=== PATIENT | female | born 1940 | race Caucasian/White ===

== ENCOUNTER 2016-07-29 15:51 | Emergency (ER) | payer MEDICARE, OTHER ==
[2016-07-29 16:16] VITALS: BMI 32.5
[2016-07-29 16:31] VITALS: TEMP 98.6
[2016-07-29] MEDS ORDERED: Sodium Chloride 0.9% 1,000 ML IV SCH (16:45)
[2016-07-29 17:07] LABS: ADD MANUAL DIFF? NO
[2016-07-29 17:10] LABS: BASO # 0.02 K/mm3 (0.0-2.0); BASO % 0.2 % (0.0-3.0); EOS # 0.2 (0.0-0.7); EOS % 1.7 % (1.5-5.0); GRAN # 8.17 (1.4-6.5); GRAN % 73.4 % (50.0-68.0); HEMATOCRIT 39.6 % (36.0-48.0); LYMPH # 2.2 (1.2-3.4); LYMPH % 19.5 % (22.0-35.0); MEAN CELL VOLUME 89.6 fL (80.0-105.0); MEAN CORPUSCULAR HGB CONC 32.3 g/dl (31.0-37.0); MEAN PLATELET VOLUME 10.1 fl (7.0-11.0); MONO # 0.6 (0.1-0.6); MONO % 5.2 % (1.0-6.0); PLATELET COUNT 263 10^3/uL (120.0-450.0); RED CELL DISTRIBUTION WIDTH 15.2 % (11.5-14.5); WHITE BLOOD COUNT 11.1 10^3/ul (4.5-11.0)
[2016-07-29 17:19] LABS: ALKALINE PHOSPHATASE 65 U/L (38-133); ALT/SGPT 8 U/L (7-56); AST/SGOT 31 U/L (15-39); BILIRUBIN,TOTAL 0.6 mg/dL (0.2-1.3); BLOOD UREA NITROGEN 18 mg/dL (7-21); CALCIUM 9.1 mg/dL (8.4-10.5); CARBON DIOXIDE 30 mmol/L (21-33); CHLORIDE 103 mmol/L (98-107); GFR AFRICAN-AMERICAN > 60; GLUCOSE,RANDOM 110 mg/dL (70-110); SODIUM 141 mmol/L (132-148); TOTAL PROTEIN 7.5 g/dL (5.8-8.3)
[2016-07-29 17:21] LABS: POTASSIUM 4.5 mmol/L (3.6-5.0)
[2016-07-29 17:32] LABS: TROPONIN I < 0.01 ng/mL
--- NOTE | 2016-07-29 17:54 | CT ---
PROCEDURE: CT HEAD WITHOUT CONTRAST. HISTORY: dizziness COMPARISON: Noncontrast head CT performed 01/14/13 TECHNIQUE: Axial computed tomography images were obtained through the head/brain without intravenous contrast. Radiation dose: Total exam DLP = 800.68 mGy-cm. FINDINGS: HEMORRHAGE: No intracranial hemorrhage. BRAIN: No mass effect or edema. Scattered white matter hypodensities, which are nonspecific, but often seen with chronic microvascular ischemic disease. Please note that MRI with diffusion imaging is more sensitive in the detection of acute ischemic event. VENTRICLES: No hydrocephalus. CALVARIUM: Unremarkable. PARANASAL SINUSES: Unremarkable as visualized. No significant inflammatory changes. MASTOID AIR CELLS: Under aeration of the mastoid air cells bilaterally ; correlate for clinical history of chronic mastoiditis. OTHER FINDINGS: None. IMPRESSION: Nonspecific scattered white matter changes. Under aeration of the mastoid air cells bilaterally ; correlate for clinical history of chronic mastoiditis.
--- NOTE | 2016-07-29 18:01 | ED PDOC ---
Arrival/HPI - General Chief Complaint: Dizziness/Lightheaded Time Seen by Provider: 07/29/16 16:20 Historian: Patient - History of Present Illness Narrative History of Present Illness (Text): 07/29/16 16:30 Alisa Whitney is a 76 year old female whose past medical history includes Vertigo/DizzinesS, who presents to the ED after experiencing a five minute episode of dizziness. Patient states symptoms began after riding in the back of a car. Symptoms resolved spontaneously. Patient is now asymptomatic. Patient states she has medication for vertigo but did not take it at the time of symptom onset because she did not have it with her. Patient denies ever having any fever, chills, chest pain, shortness of breath, nausea, vomiting, diarrhea, urinary symptoms, back pain, neck pain, headache, or any other complaints. PMD: Heri Rubin MD Time/Duration: 24 hours Symptom Onset: Gradual Activities at Onset: Light Context: Home Past Medical History - Provider Review Nursing Documentation Reviewed: Yes - Infectious Disease Hx of Infectious Diseases: None - Tetanus Immunization Tetanus Immunization: Unknown - Reproductive Menopause: Yes - Cardiac Hx Hypertension: Yes - Pulmonary Hx Respiratory Disorders: No - Neurological Hx Neurological Disorder: No - HEENT Hx HEENT Disorder: No - Renal Hx Renal Disorder: No - Endocrine/Metabolic Hx Diabetes Mellitus Type 2: Yes - Hematological/Oncological Hx Anemia: Yes Hx Cancer: Yes (/carcinoid cancer lung) - Integumentary Hx Dermatological Disorder: No - Musculoskeletal/Rheumatological Hx Musculoskeletal Disorders: No Hx Falls: No - Gastrointestinal Hx Gastroesophageal Reflux: Yes - Genitourinary/Gynecological Hx Genitourinary Disorders: No - Psychiatric Hx Psychophysiologic Disorder: No Hx Emotional Abuse: No Hx Physical Abuse: No Hx Substance Use: No - Surgical History Hx Cholecystectomy: Yes Other/Comment: Lung surgery for cancer. Unsure exactly what kind. - Anesthesia Hx Anesthesia Reactions: No Hx Malignant Hyperthermia: No - Suicidal Assessment Feels Threatened In Home Enviroment: No Family/Social History - Physician Review Nursing Documentation Reviewed: Yes Family/Social History: No Known Family HX Smoking Status: Former Smoker Hx Alcohol Use: No Hx Substance Use: No Allergies/Home Meds Allergies/Adverse Reactions: Allergies CT SCAN DYE Allergy (Intermediate, Uncoded 07/29/16 16:08) RASH Home Medications: Home Meds Medication Instructions Recorded Confirmed Folic Acid 1 mg PO DAILY 01/14/13 07/29/16 Meclizine HCl [Antivert] 25 mg PO TID 01/14/13 07/29/16 [id number] CD [Cardizem CD] 180 mg PO DAILY 01/14/13 07/29/16 Aspirin/Dipyridamole [Aggrenox 1 cap PO BID 07/07/16 07/29/16 25-200 mg] Ergocalciferol (Vitamin D2) 1 cap PO QWK 07/07/16 07/29/16 [Vitamin D2] Ferrous Sulfate [Feosol] 325 mg PO TID 07/07/16 07/29/16 Octreotide Depot [SandoSTATIN LAR 30 mg IM Q30D 07/07/16 07/29/16 (Depot formulation)] Luxor-0-Dyyh Ethyl Esters 1 GM 2 gm PO BID 07/07/16 07/29/16 [Lovaza] Rosuvastatin Calcium [Crestor] 20 mg PO DAILY 07/07/16 07/29/16 Review of Systems - Physician Review All systems were reviewed & negative as marked: Yes - Review of Systems Constitutional: Normal. absent: Fevers Eyes: Normal. absent: Vision Changes ENT: Normal. absent: Hearing Changes Respiratory: Normal. absent: SOB, Cough Cardiovascular: Normal. absent: Chest Pain Gastrointestinal: Normal. absent: Abdominal Pain, Diarrhea, Nausea, Vomiting Genitourinary Female: Normal. absent: Dysuria, Frequency, Hematuria Musculoskeletal: Normal. absent: Back Pain, Neck Pain Skin: Normal Neurological: Dizziness. absent: Headache Endocrine: Normal Hemo/Lymphatic: Normal Psychiatric: Normal Physical Exam Vital Signs Reviewed: Yes Vital Signs Temp Pulse Resp BP Pulse Ox 07/29/16 18:33 68 18 143/75 96 07/29/16 16:30 98.6 F 75 24 136/68 98 07/29/16 16:10 98.2 F 84 18 158/81 H 98 Temperature: Afebrile Blood Pressure: Hypertensive Pulse: Regular Respiratory Rate: Normal Appearance: Positive for: Well-Appearing, Non-Toxic, Comfortable Pain Distress: None Mental Status: Positive for: Alert and Oriented X 3 Finger Stick Blood Glucose: 116 - Systems Exam Head: Present: Atraumatic, Normocephalic Pupils: Present: PERRL Extroacular Muscles: Present: EOMI Conjunctiva: Present: Normal Mouth: Present: Moist Mucous Membranes Neck: Present: Normal Range of Motion Respiratory/Chest: Present: Clear to Auscultation, Good Air Exchange. No: Respiratory Distress, Accessory Muscle Use Cardiovascular: Present: Regular Rate and Rhythm, Normal S1, S2. No: Murmurs Abdomen: Present: Normal Bowel Sounds. No: Tenderness, Distention, Peritoneal Signs Back: Present: Normal Inspection Upper Extremity: Present: Normal Inspection. No: Cyanosis, Edema Lower Extremity: Present: Normal Inspection. No: Edema Neurological: Present: GCS=15, CN II-XII Intact, Speech Normal Skin: Present: Warm, Dry, Normal Color. No: Rashes Psychiatric: Present: Alert, Oriented x 3, Normal Insight, Normal Concentration Medical Decision Making ED Course and Treatment: 07/29/16 16:30 Impression: 76 year old female presenting for an episode dizziness that has resolved. Plan: -- Head CT -- EKG -- Labs, Troponin -- IV Fluids -- Reassess and disposition Progress Notes: 07/29/16 17:52 Procedure: CT HEAD WITHOUT CONTRAST. Dictator: Eugenie Chaves MD Impression: Nonspecific scattered white matter changes. Under aeration of the mastoid air cells bilaterally ; correlate for clinical history of chronic mastoiditis. 07/29/16 18:09 On re-evaluation, the patient feels better and is in no acute distress. I have discussed the results and plan with the patient, who expresses understanding. Patient in agreement with plan to discharged home. Patient is stable for discharge. Patient was instructed to follow up with physician/clinic in 1-2 days or return if symptoms worsen or new concerning symptoms arise. - Lab Interpretations Lab Results: 07/29/16 16:50 07/29/16 16:50 Lab Results 07/29/16 16:50: WBC 11.1 H D, RBC 4.42, Hgb 12.8, Hct 39.6, MCV 89.6, MCH 29.0, MCHC 32.3, RDW 15.2 H, Plt Count 263, MPV 10.1, Gran % 73.4 H, Lymph % (Auto) 19.5 L, [place] % (Auto) 5.2, Eos % (Auto) 1.7, Baso % (Auto) 0.2, Gran # 8.17 H, Lymph # 2.2, [place] # 0.6, Eos # 0.2, Baso # 0.02, Sodium 141, Potassium 4.5, Chloride 103, Carbon Dioxide 30, Anion Gap 13, BUN 18, Creatinine 0.8, Est GFR ( Amer) > 60, Est GFR (Non-Af Amer) > 60, Random Glucose 110, Calcium 9.1 , Total Bilirubin 0.6, AST 31, ALT 8, Alkaline Phosphatase 65, Troponin I < 0.01 , Total Protein 7.5, Albumin 3.8, Globulin 3.7, Albumin/Globulin Ratio 1.0 L I have reviewed the lab results: Yes - RAD Interpretation Narrative RAD Interpretations (Text): 07/29/16 17:52 Procedure: CT HEAD WITHOUT CONTRAST. Dictator: Eugenie Chaves MD FINDINGS: HEMORRHAGE: No intracranial hemorrhage. BRAIN: No mass effect or edema. Scattered white matter hypodensities, which are nonspecific, but often seen with chronic microvascular ischemic disease. Please note that MRI with diffusion imaging is more sensitive in the detection of acute ischemic event. VENTRICLES: No hydrocephalus. CALVARIUM: Unremarkable. PARANASAL SINUSES: Unremarkable as visualized. No significant inflammatory changes. MASTOID AIR CELLS: Under aeration of the mastoid air cells bilaterally ; correlate for clinical history of chronic mastoiditis. OTHER FINDINGS: None. Impression: Nonspecific scattered white matter changes. Under aeration of the mastoid air cells bilaterally ; correlate for clinical history of chronic mastoiditis. Radiology Orders: 07/29/16 16:39 HEAD W/O CONTRAST [CT] Stat Hydraulic Jack Mechanic: Radiologist - EKG Interpretation Interpreted by ED Physician: Yes Type: 12 lead EKG - Medication Orders Current Medication Orders: Discontinued Medications Sodium Chloride (Sodium Chloride 0.9%) 1,000 mls @ 100 mls/hr IV .Q10H SERVANDO Last Admin: 07/29/16 17:02 Dose: 100 MLS/HR eMAR Start Stop Document 07/29/16 17:02 OCS (Rec: 07/29/16 17:04 OCS [id number]) Intravenous Solution Start Date 07/29/16 Start Time 17:04 - Scribe Statement The provider has reviewed the documentation as recorded by the Scribe Brookyln Daly Provider Attestation: All medical record entries made by the Scribe were at my direction and personally dictated by me. I have reviewed the chart and agree that the record accurately reflects my personal performance of the history, physical exam, medical decision making, and the department course for this patient. I have also personally directed, reviewed, and agree with the discharge instructions and disposition. Disposition/Present on Arrival - Present on Arrival Any Indicators Present on Arrival: No History of DVT/PE: No History of Uncontrolled Diabetes: No Urinary Catheter: No History of Decub. Ulcer: No History Surgical Site Infection Following: None - Disposition Have Diagnosis and Disposition been Completed?: Yes Diagnosis: Dizziness Disposition: HOME/ ROUTINE Disposition Time: 18:00 Condition: GOOD Discharge Instructions (ExitCare): Dizziness (ED) Additional Instructions: Thank you for letting us take care of you today. Your provider was Dr. Fam. You were treated for dizziness. The emergency medical care you received today was directed at your acute symptoms. If you were prescribed any medication, please fill it and take as directed. It may take several days for your symptoms to resolve. Return to the Emergency Department if your symptoms worsen, do not improve, or if you have any other problems. Please contact your doctor or call one of the physicians/clinics you have been referred to that are listed on the Patient Visit Information form that is included in your discharge packet. Bring any paperwork you were given at discharge with you along with any medications you are taking to your follow up visit. Our treatment cannot replace ongoing medical care by a primary care provider (PCP) outside of the emergency department. Thank you for allowing the [facility] team to be part of your care today. Follow up with your doctor in 2-3 days for re-evaluation. Referrals: Heri Rubin MD [Primary Care Provider] - Follow up with primary
[2016-07-29 18:34] VITALS: BP 143/75; PULSE 68; RESP 18; O2SAT 96
--- NOTE | 2016-07-30 09:50 | CARD ---
APPROVED REPORT EKG Measurement Heart [id number] <Conclusion> Normal sinus rhythm Normal ECG No change
== END 2016-07-29 18:39 | disposition home or self-care (01) ==
LOC: ED 15:51
DX: R42 Dizziness and giddiness (principal); Z87.891 Personal history of nicotine dependence; E11.9 Type 2 diabetes mellitus without complications
CPT/HCPCS: 70450; 80053; 84484; 85025; 93005; 99285; J7040

== ENCOUNTER 2016-10-24 10:21 | Day surgery (SDC) | payer MEDICARE, OTHER ==
[2016-10-13 12:49] VITALS: BMI 33.9
[2016-10-24] MEDS ORDERED: Propofol 10 mg/ml Inj (20 ML) ONE (12:22)
[2016-10-24] MEDS ORDERED: Midazolam 2 MG/2 ML VIAL ONE (12:22)
[2016-10-24] MEDS ORDERED: Lidocaine 1% Inj (20ml) ONE (12:22)
[2016-10-24] MEDS ORDERED: Sodium Chloride 0.9% 1,000 ML IV SCH (13:00)
[2016-10-24 14:50] VITALS: BP 126/71; PULSE 69; RESP 16; TEMP 98; O2SAT 96
== END 2016-10-24 14:34 | disposition home or self-care (01) ==
LOC: ENDO 10:21
PROVIDERS: ATTEND Internal Medicine Gastroenterology
DX: D50.9 Iron deficiency anemia, unspecified (principal); K25.9 Gastric ulcer, unspecified as acute or chronic, without hemorrhage or perforation; E11.9 Type 2 diabetes mellitus without complications; E78.5 Hyperlipidemia, unspecified; I10 Essential (primary) hypertension; Z85.110 Personal history of malignant carcinoid tumor of bronchus and lung
CPT/HCPCS: 43239; 88305; 88342; J2250; J2704; J3010; J7040 ×2

== ENCOUNTER 2017-02-02 10:30 | Day surgery (SDC) | payer MEDICARE, OTHER ==
[2016-10-13 12:49] VITALS: BMI 33.9
[2017-02-02 10:53] LABS: BASO # 0.03 K/mm3 (0.0-2.0); BASO % 0.3 % (0.0-3.0); EOS # 0.4 (0.0-0.7); EOS % 4.1 % (1.5-5.0); GRAN # 8.32 (1.4-6.5); GRAN % 77.3 % (50.0-68.0); HEMATOCRIT 42.5 % (36.0-48.0); LYMPH # 1.2 (1.2-3.4); MEAN CELL VOLUME 92.6 fl (80.0-105.0); MEAN CORPUSCULAR HEMOGLOBIN 30.5 pg (25.0-35.0); MEAN CORPUSCULAR HGB CONC 32.9 g/dl (31.0-37.0); MEAN PLATELET VOLUME 9.6 fl (7.0-11.0); MONO # 0.8 (0.1-0.6); MONO % 7.3 % (1.0-6.0); RED CELL DISTRIBUTION WIDTH 13.7 % (11.5-14.5); WHITE BLOOD COUNT 10.8 10^3/ul (4.5-11.0)
[2017-02-02 11:01] LABS: ALB/GLOB RATIO 1.3 (1.1-1.8); ALKALINE PHOSPHATASE 75 U/L (38-126); ALT/SGPT 29 U/L (7-56); AMYLASE 51 U/L (35-125); AST/SGOT 26 U/L (14-36); BILIRUBIN,TOTAL 0.4 mg/dL (0.2-1.3); BLOOD UREA NITROGEN 14 mg/dL (7-21); CALCIUM 9.1 mg/dL (8.4-10.5); CARBON DIOXIDE 31 mmol/L (21-33); CHLORIDE 104 mmol/L (98-107); GFR AFRICAN-AMERICAN > 60; GLUCOSE,RANDOM 122 mg/dL (70-110); LIPASE 64 U/L (23-300); POTASSIUM 4.4 mmol/L (3.6-5.0); SODIUM 146 mmol/L (132-148); TOTAL PROTEIN 7.3 g/dL (5.8-8.3)
[2017-02-02 11:06] LABS: INR 0.95 (0.93-1.08); PARTIAL THROMBOPLASTIN TIME 28.8 Seconds (23.7-30.8)
[2017-02-02] MEDS ORDERED: Propofol 10 mg/ml Inj (20 ML) ONE ×2 (12:52→13:59)
[2017-02-02] MEDS ORDERED: Midazolam 2 MG/2 ML VIAL ONE (12:53)
[2017-02-02] MEDS ORDERED: Sodium Chloride 0.9% 1,000 ML IV SCH (13:45)
[2017-02-02 15:28] VITALS: BP 148/78; PULSE 84; RESP 18; TEMP 98.4; O2SAT 97
== END 2017-02-02 16:01 | disposition home or self-care (01) ==
LOC: ENDO 10:30
PROVIDERS: ATTEND Internal Medicine Gastroenterology
DX: K31.819 Angiodysplasia of stomach and duodenum without bleeding (principal); K25.9 Gastric ulcer, unspecified as acute or chronic, without hemorrhage or perforation; D50.9 Iron deficiency anemia, unspecified; K29.50 Unspecified chronic gastritis without bleeding; E11.9 Type 2 diabetes mellitus without complications; I10 Essential (primary) hypertension; C7A.090 Malignant carcinoid tumor of the bronchus and lung; E78.00 Pure hypercholesterolemia, unspecified
CPT/HCPCS: 36415; 43239; 43242; 80053; 82150; 82977; 83690; 85025; 85610; 85730; 88305; 88342; J2001; J2250; J2704; J3010; J7030; J7040 ×2

== ENCOUNTER 2017-05-19 03:05 | Emergency (ER) | payer MEDICARE, OTHER ==
[2017-05-19 03:05] VITALS: BMI 33.9
--- NOTE | 2017-05-19 04:54 | ED PDOC ---
Arrival/HPI - General Chief Complaint: ENT Problem Time Seen by Provider: 05/19/17 04:39 Historian: Patient - History of Present Illness Narrative History of Present Illness (Text): 05/19/17 04:47 Alisa Whitney is a 76 year old female, whose past medical history includes TIA, hypertension, dyslipidemia, and lung carcinoma, who presents to the emergency department complaining of epistaxis tonight. Patient states she has left-sided nose bleed for approximately 30 minutes tonight, which resolved prior to arrival. Patient regularly takes Aggrenox. Patient denies any fever, chills, chest pain, shortness of breath, abdominal pain, neck pain, headache, dizziness , or any other complaints. Time/Duration: Other (tonight) Symptom Onset: Gradual Symptom Course: Unchanged Activities at Onset: Light Context: Home Past Medical History - Provider Review Nursing Documentation Reviewed: Yes - Infectious Disease Hx of Infectious Diseases: None - Tetanus Immunization Tetanus Immunization: Unknown - Cardiac Hx Pacemaker: No - Pulmonary Hx Respiratory Disorders: No - Neurological Hx Paralysis: No - HEENT Hx HEENT Disorder: No - Renal Hx Renal Disorder: No - Endocrine/Metabolic Hx Diabetes Mellitus Type 2: Yes - Hematological/Oncological Hx Blood Transfusions: No Hx Blood Transfusion Reaction: No - Integumentary Hx Dermatological Disorder: No - Musculoskeletal/Rheumatological Hx Musculoskeletal Disorders: No - Gastrointestinal Hx Gastroesophageal Reflux: Yes - Genitourinary/Gynecological Hx Genitourinary Disorders: No - Psychiatric Hx Emotional Abuse: No Hx Physical Abuse: No Hx Substance Use: No - Surgical History Hx Cholecystectomy: Yes Other/Comment: Lung surgery for cancer. Unsure exactly what kind. - Anesthesia Hx Anesthesia Reactions: No - Suicidal Assessment Feels Threatened In Home Enviroment: No Family/Social History - Physician Review Nursing Documentation Reviewed: Yes Family/Social History: Unknown Family HX Smoking Status: Former Smoker Hx Alcohol Use: No Hx Substance Use: No Allergies/Home Meds Allergies/Adverse Reactions: Allergies CT SCAN DYE Allergy (Intermediate, Uncoded 07/29/16 16:08) RASH Home Medications: Home Meds Medication Instructions Recorded Confirmed Folic Acid 1 mg PO DAILY 01/14/13 02/02/17 Meclizine HCl [Antivert] 25 mg PO BID PRN 01/14/13 02/02/17 [id number] CD [Cardizem CD] 180 mg PO QPM 01/14/13 02/02/17 Aspirin/Dipyridamole [Aggrenox 1 cap PO BID 07/07/16 02/02/17 25-200 mg] Ergocalciferol (Vitamin D2) 1 cap PO MON 07/07/16 02/02/17 [Vitamin D2] Octreotide Depot [SandoSTATIN LAR 30 mg IM Q30D 07/07/16 02/02/17 (Depot formulation)] Rosuvastatin Calcium [Crestor] 20 mg PO DAILY 07/07/16 02/02/17 Exemestane [Aromasin] 25 mg PO DAILY 01/25/17 02/02/17 Review of Systems - Physician Review All systems were reviewed & negative as marked: Yes - Review of Systems Constitutional: Normal. absent: Fevers Eyes: Normal ENT: Epistaxis Respiratory: Normal. absent: SOB, Cough Cardiovascular: Normal. absent: Chest Pain Gastrointestinal: Normal. absent: Abdominal Pain, Diarrhea, Nausea, Vomiting Genitourinary Female: Normal. absent: Dysuria, Frequency, Hematuria, Urine Output Changes Musculoskeletal: Normal. absent: Back Pain, Neck Pain Skin: Normal. absent: Rash Neurological: Normal. absent: Headache, Dizziness Endocrine: Normal Hemo/Lymphatic: Normal Psychiatric: Normal Physical Exam Vital Signs Reviewed: Yes Temperature: Afebrile Blood Pressure: Normal Pulse: Regular Respiratory Rate: Normal Appearance: Positive for: Well-Appearing, Non-Toxic, Comfortable Pain Distress: None Mental Status: Positive for: Alert and Oriented X 3 - Systems Exam Head: Present: Atraumatic, Normocephalic Pupils: Present: PERRL Extroacular Muscles: Present: EOMI Conjunctiva: Present: Normal Ears: Present: Normal, NORMAL TM, Normal Canal. No: Erythema, TM Bulging, Fluid , TM Perf Mouth: Present: Moist Mucous Membranes Pharnyx: Present: Normal. No: ERYTHEMA, EXUDATE, TONSILS ENLARGED, Peritonsilar Swelling, Uvular Deviation, Muffled/Hoarse Voice, Strider, Soft Palate/Uvular Edema Nose (External): Present: Atraumatic Nose (Internal): Present: Other (Dried blood in left anterior naris) Neck: Present: Normal Range of Motion. No: Meningeal Signs, MIDLINE TENDERNESS Respiratory/Chest: Present: Clear to Auscultation, Good Air Exchange. No: Respiratory Distress, Accessory Muscle Use Cardiovascular: Present: Regular Rate and Rhythm, Normal S1, S2. No: Murmurs Upper Extremity: Present: Normal Inspection. No: Cyanosis, Edema Lower Extremity: Present: Normal Inspection. No: Edema Neurological: Present: GCS=15, CN II-XII Intact, Speech Normal Skin: Present: Warm, Dry, Normal Color. No: Rashes Psychiatric: Present: Alert, Oriented x 3, Normal Insight, Normal Concentration Medical Decision Making ED Course and Treatment: 05/19/17 04:47 Impression: 76 year old female complaining of left-sided epistaxis tonight. Differential Diagnosis included but are not limited to: epistaxis Plan: -- Silver Nitrate Cautery -- Reassess and disposition Progress Notes: PROCEDURE: EPISTAXIS MANAGEMENT Performed by the emergency provider Consent: Informed consent was obtained after discussion of the risks, benefits, and alternatives to the procedure. Timeout: A timeout to verify the correct patient, procedure, and site was performed immediately prior to the procedure. Indication: Nasal bleeding control Location: left naris Bleeding Source: ANTERIOR Cautery: Silver Nitrate cautery Post-procedure: Good hemostasis. The patient was observed following procedure and no repeat episode of bleeding was noted. Patient tolerated the procedure well with no immediate complications. 05/19/17 06:00 On reevaluation the patient feels better and is in no acute distress. No active nose bleed. Patient given the opportunity to ask question, all questions were answered and there is agreement with the plan to discharge the patient home. Patient is stable for discharge. Patient was instructed to follow up with physician/clinic in 1-2 days or return if symptoms persist/worsen or new concerning symptoms arise. - Scribe Statement The provider has reviewed the documentation as recorded by the Yolette Grullon Provider Scribe Attestation: All medical record entries made by the Yolette were at my direction and personally dictated by me. I have reviewed the chart and agree that the record accurately reflects my personal performance of the history, physical exam, medical decision making, and the department course for this patient. I have also personally directed, reviewed, and agree with the discharge instructions and disposition. Disposition/Present on Arrival - Present on Arrival Any Indicators Present on Arrival: No History of DVT/PE: No History of Uncontrolled Diabetes: No Urinary Catheter: No History of Decub. Ulcer: No History Surgical Site Infection Following: None - Disposition Have Diagnosis and Disposition been Completed?: Yes Diagnosis: Epistaxis Disposition: HOME/ ROUTINE Disposition Time: 06:01 Patient Plan: Discharge Patient Problems: Current Active Problems Problem Status Onset Epistaxis Acute Condition: GOOD Discharge Instructions (ExitCare): Nosebleed (ED) Additional Instructions: Avoid any trauma/digital manipulation/blowing nose/ecc.// Follow up with the ear /nose/throat specialist this week. Referrals: Jose Henson DO [Staff Provider] - Follow up with primary Forms: [place] ([place]ib[place]ian)
[2017-05-19 06:33] VITALS: BP 136/76; PULSE 86; RESP 18; O2SAT 99
== END 2017-05-19 06:33 | disposition home or self-care (01) ==
LOC: ED 03:05
DX: R04.0 Epistaxis (principal)

== ENCOUNTER 2017-05-22 05:38 | Emergency (ER) | payer MEDICARE, OTHER ==
[2017-05-22 05:39] VITALS: BMI 33.9
[2017-05-22 05:49] VITALS: TEMP 98.3
--- NOTE | 2017-05-22 06:00 | ED PDOC ---
Arrival/HPI - General Chief Complaint: ENT Problem Time Seen by Provider: 05/22/17 05:48 Historian: Patient - History of Present Illness Narrative History of Present Illness (Text): 05/22/17 06:01 Alisa Whitney is a 76 year old female, whose past medical history includes TIA, hypertension, dyslipidemia, and lung carcinoma, who presents to the emergency department complaining of epistaxis. The patient states that she got up from bed and it began "rushing out" of her left nare. As per the patient's son, the patient was bleeding for 15-20 minutes. The patient's bleeding has resolved in the emergency department. The patient states that she has not yet seen an ENT for her symptoms. The patient denies fevers, chills, headache, dizziness, chest pain, shortness of breath, dyspnea on exertion, cough, abdominal pain, nausea, vomiting, diarrhea, back pain, neck pain, urinary/bowel changes, or any other complaint. PMD: Dr. Rubin Time/Duration: Prior to Arrival Symptom Onset: Sudden Symptom Course: Resolved Activities at Onset: Rest, Light Context: Home Past Medical History - Provider Review Nursing Documentation Reviewed: Yes - Infectious Disease Hx of Infectious Diseases: None - Tetanus Immunization Tetanus Immunization: Unknown - Cardiac Hx Pacemaker: No - Pulmonary Hx Respiratory Disorders: No - Neurological Hx Paralysis: No - HEENT Hx HEENT Disorder: No - Renal Hx Renal Disorder: No - Endocrine/Metabolic Hx Diabetes Mellitus Type 2: Yes - Hematological/Oncological Hx Blood Transfusions: No Hx Blood Transfusion Reaction: No - Integumentary Hx Dermatological Disorder: No - Musculoskeletal/Rheumatological Hx Musculoskeletal Disorders: No - Gastrointestinal Hx Gastroesophageal Reflux: Yes - Genitourinary/Gynecological Hx Genitourinary Disorders: No - Psychiatric Hx Emotional Abuse: No Hx Physical Abuse: No Hx Substance Use: No - Surgical History Hx Cholecystectomy: Yes Other/Comment: Lung surgery for cancer. Unsure exactly what kind. - Anesthesia Hx Anesthesia Reactions: No - Suicidal Assessment Feels Threatened In Home Enviroment: No Family/Social History - Physician Review Nursing Documentation Reviewed: Yes Family/Social History: No Known Family HX Smoking Status: Former Smoker Hx Alcohol Use: No Hx Substance Use: No Allergies/Home Meds Allergies/Adverse Reactions: Allergies CT SCAN DYE Allergy (Intermediate, Uncoded 05/22/17 05:47) RASH Home Medications: Home Meds Medication Instructions Recorded Confirmed Folic Acid 1 mg PO DAILY 01/14/13 05/22/17 Meclizine HCl [Antivert] 25 mg PO BID PRN 01/14/13 05/22/17 [id number] CD [Cardizem CD] 180 mg PO QPM 01/14/13 05/22/17 Aspirin/Dipyridamole [Aggrenox 1 cap PO BID 07/07/16 05/22/17 25-200 mg] Ergocalciferol (Vitamin D2) 1 cap PO MON 07/07/16 05/22/17 [Vitamin D2] Octreotide Depot [SandoSTATIN LAR 30 mg IM Q30D 07/07/16 05/22/17 (Depot formulation)] Rosuvastatin Calcium [Crestor] 20 mg PO DAILY 07/07/16 05/22/17 Exemestane [Aromasin] 25 mg PO DAILY 01/25/17 05/22/17 Review of Systems - Physician Review All systems were reviewed & negative as marked: Yes - Review of Systems Constitutional: absent: Fevers, Night Sweats ENT: Epistaxis Respiratory: absent: SOB, Cough Cardiovascular: absent: Chest Pain, AGUAYO Gastrointestinal: absent: Abdominal Pain, Stool Changes, Diarrhea, Nausea, Vomiting Genitourinary Female: absent: Urine Output Changes Musculoskeletal: absent: Back Pain, Neck Pain Neurological: absent: Headache, Dizziness Physical Exam Vital Signs Reviewed: Yes Vital Signs Temp Pulse Resp BP Pulse Ox 05/22/17 05:48 98.3 F 89 18 148/74 96 Temperature: Afebrile Blood Pressure: Normal Pulse: Regular Respiratory Rate: Normal Appearance: Positive for: Well-Appearing, Non-Toxic, Comfortable Pain Distress: None Mental Status: Positive for: Alert and Oriented X 3 - Systems Exam Head: Present: Atraumatic, Normocephalic Pupils: Present: PERRL Extroacular Muscles: Present: EOMI Conjunctiva: Present: Normal Mouth: Present: Moist Mucous Membranes Nose (Internal): Present: No Active Bleeding (No need to cauterize. ). No: Epistaxis Neck: Present: Normal Range of Motion Respiratory/Chest: Present: Clear to Auscultation, Good Air Exchange. No: Respiratory Distress, Accessory Muscle Use Cardiovascular: Present: Regular Rate and Rhythm, Normal S1, S2. No: Murmurs Abdomen: Present: Normal Bowel Sounds. No: Tenderness, Distention, Peritoneal Signs Back: Present: Normal Inspection Upper Extremity: Present: Normal Inspection. No: Cyanosis, Edema Lower Extremity: Present: Normal Inspection. No: Edema Neurological: Present: GCS=15, CN II-XII Intact, Speech Normal Skin: Present: Warm, Dry, Normal Color. No: Rashes Psychiatric: Present: Alert, Oriented x 3, Normal Insight, Normal Concentration Medical Decision Making ED Course and Treatment: 05/22/17 06:05 Impression: A 76 year old female presents to the emergency department with complaints of epistaxis. Plan: -- Reassess and disposition Prior Visits: Notes and results from previous visits were reviewed. Patient was last seen in the emergency department on 05/19/2017. The patient was seen in the emergency department for a complaint of epistaxis. The patient was discharged home. Progress Notes: - Scribe Statement The provider has reviewed the documentation as recorded by the Scribe Raquel Charles Provider Scribe Attestation: All medical record entries made by the Scribe were at my direction and personally dictated by me. I have reviewed the chart and agree that the record accurately reflects my personal performance of the history, physical exam, medical decision making, and the department course for this patient. I have also personally directed, reviewed, and agree with the discharge instructions and disposition. Disposition/Present on Arrival - Present on Arrival Any Indicators Present on Arrival: No History of DVT/PE: No History of Uncontrolled Diabetes: No Urinary Catheter: No History of Decub. Ulcer: No History Surgical Site Infection Following: None - Disposition Have Diagnosis and Disposition been Completed?: Yes Diagnosis: Epistaxis Disposition: HOME/ ROUTINE Disposition Time: 06:08 Patient Plan: Discharge Condition: GOOD Discharge Instructions (ExitCare): Nosebleed (ED) Additional Instructions: Mrs Perla Mast this started bleeding again. Please call Dr Henson [ENT] [phone] and see them as soon as possible. Return to us if bleeding recurs before then. Nothing hot to eat or drink. Vaporizer/Humidifier in the bedroom. Best- Dr. Alex Otto Forms: [employer] (Romanian)
[2017-05-22 06:24] VITALS: BP 139/85; PULSE 83; RESP 16; O2SAT 94
== END 2017-05-22 06:22 | disposition home or self-care (01) ==
LOC: ED 05:38
DX: R04.0 Epistaxis (principal); I10 Essential (primary) hypertension; E78.5 Hyperlipidemia, unspecified; E11.9 Type 2 diabetes mellitus without complications; Z87.891 Personal history of nicotine dependence

== ENCOUNTER 2018-05-18 09:57 | Outpatient (CLI) | payer MEDICARE, OTHER | END 2018-05-18 09:58 | disposition home or self-care (01) | LOC: RAD 09:57 ==